=== PATIENT | male | born 1995 | race Caucasian/White ===

== ENCOUNTER 2016-09-03 21:25 | Emergency (ER) | payer BC ==
[2016-09-04 03:05] LABS: HEMOGLOBIN 14.8 gm/dl (14.0-17.5); RED BLOOD COUNT 4.78 M/UL (4.20-5.50); WHITE BLOOD COUNT 7.9 K/UL (4.5-11.0)
[2016-09-04 03:27] LABS: BUN/CREATININE RATIO 21 (0-10)
== END 2016-09-04 06:18 | disposition home or self-care (01) ==
LOC: ER1 21:25
PROVIDERS: Physician Assistant
DX: R07.89 Other chest pain (principal); R06.02 Shortness of breath
CPT/HCPCS: 36415; 71010; 80053; 82550; 82553; 83874; 84484; 85025; 85379; 93005; 99285

== ENCOUNTER → 2016-09-21 | Outpatient (CLI) | payer BC | LOC: ECHO 12:46 → NM 14:30 | DX: R07.9 Chest pain, unspecified (principal) | CPT/HCPCS: ECHO; 93017; 93306 ==